=== PATIENT | female | born 1980 | race Caucasian/White ===

== ENCOUNTER → 2024-07-15 14:24 | Outpatient (RCR) | payer OTHER, SELFPAY ==
[2020-12-13 13:06] VITALS: BP 136/76; PULSE 89; RESP 18; TEMP 36.8; O2SAT 99; BMI 29.1
--- NOTE | 2020-12-13 13:36 | PM.HEMONCCN ---
Subjective - Subjective Chief complaint: Consult for anemia. Patient: new to practice Consult date: 12/13/20 Requesting Physician: Melany Bah. Primary Care Provider: ALLIE Herrera Medical Summary: DIAGNOSIS: 1. IRON DEFICIENCY ANEMIA. 2. SICKLE CELL TRAIT. HPI - Consult Narrative Reason for consult: Anemia. Narrative: Pramod arroyo is a pleasant 40 year old lady with a history of sickle cell trait. She was noted to be anemic. 07/21 CBC: WBC 6.4, HGB 8, HCT 25.6, MCV 62, PLT 328. Ferritin: 2. She has been fatigued over the past year or so. She does have a heavy period. Lately it has gotten heavier. She is passing clots. She gets it for 7 days but the 1st 3 days are the worst. Family history: Positive for sickle cell trait. 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 She has a boyfriend. She has 2 children 6 in 12-year-old. She denies smoking. She denies alcohol. Denies drugs. Review of Systems - Constitutional Reports no additional constitutional complaints, Reports lack of energy, Reports malaise, Reports weakness, Reports weight gain - Eyes Reports no additional eye complaints - ENT Reports no additional ear, nose, mouth, and throat complaints - Cardiovascular Reports no additional cardiovascular complaints - Respiratory Reports no additional respiratory complaints - Gastrointestinal Reports no additional gastrointestinal complaints - Genitourinary Reports no additional female genitourinary complaints, Reports abnormal periods, Reports heavy periods - Musculoskeletal Reports no additional musculoskeletal complaints - Integumentary/Breasts Skin/Breast: Reports no additional skin complaints - Neurologic Reports no additional neurologic complaints - Psychiatric Reports no additional psychiatric complaints - Endocrine Reports no additional endocrine complaints - Hematologic/Lymphatic Reports no additional hematologic/lymphatic complaints - Allergic/Immunologic Reports no additional allergic/immunologic complaints [facility] Medical History: Medical History (Last Updated 12/13/20 @ 07:31 by Suzi Galicia) Allergic rhinitis Hypothyroidism Iron deficiency anemia Menorrhagia with regular cycle Nephrolithiasis Sickle cell trait Functional capacity: independent ambulation Patient : No Social History: Social History (Last Updated 12/13/20 @ 13:11 by Nidhi Gongora RN) Alcohol History Details: Alcohol intake frequency: does not drink Tobacco History: Smoking Status: Never smoker Nutrition Assessment: Patient : No Smoking status: Never smoker Home Medications and Allergies Home Medications Medication Instructions Recorded Confirmed Type ferrous sulfate 1 tab PO Q OTHER DAY 12/13/20 12/13/20 History levothyroxine 1 tab PO QAM 12/13/20 12/13/20 History Allergies Allergy/AdvReac Type Severity Reaction Status Date / Time No Known Allergies Allergy Verified 12/13/20 07:33 Physical Exam Vital signs: Vital Signs Temp 98.2 F 12/13/20 13:06 Pulse 89 12/13/20 13:06 Resp 18 12/13/20 13:06 BP 136/76 12/13/20 13:06 Pulse Ox 99 12/13/20 13:06 Intake & Output 12/12/20 12/13/20 12/13/20 18:59 06:59 18:59 Other: Weight 84.5 kg Weight 84.5 kg - Constitutional Present: no acute distress - Routine HEENT Exam Head: Present: normal inspection ENT: Present: mucous membranes moist - Routine Neck Exam Present: supple - Routine Respiratory Exam Present: CTAB - Routine Cardiovascular Exam Cardiovascular: Present: RRR, S1, S2 - Routine Abdominal Exam Present: normal bowel sounds, nontender - Routine Rectal Exam Patient deferred: digital exam - Routine Extremities Exam Present: nontender - Routine Skin Exam Present: intact - Routine Neurological Exam Present: alert, oriented X3, normal speech - Detailed Neurological Exam: Coma Scale Eye Opening: Spontaneous (4) Verbal Response: Oriented (5) Motor Response: Obeys commands (6) [place] Coma Scale Total: 15 - Routine Psychiatric Exam Present: normal affect Hem/Onc Consult Result - Labs CBC & Chem 7: 12/13/20 13:39 12/13/20 13:39 Assessment and Plan (1) Anemia Status: Acute This is a pleasant 40-year-old lady with Microcytic Hypochromic Anemia. This is most likely due to underlying Iron Deficiency: She does have menorrhagia. She does have underlying sickle cell trait but that would not cause microcytosis. Differential diagnosis: 2. Hemolytic anemia. 3. Anemia of chronic disease. PLAN: I will proceed with further evaluation. Recheck her blood count today. Hemoglobin is 8.8 today. Check iron studies and ferritin. Iron profile: //. Check a hemolytic screen. Will check hemoglobin electrophoresis. She is intolerant to oral iron. Will arrange for IV iron. Will arrange for Injectafer. The dose would be 750 mg IV x2, 1 week apart. She will return in 3 months for a follow-up visit. Thank you, CC: Emely Bah.
[2020-12-13 13:53] LABS: MANUAL DIFF FLAG NO
[2020-12-13 14:00] LABS: Basophils Percent Auto 0.1 % (0-2); Eosinophils Absolute Auto 0.1 X10*3/uL (0.0-0.4); Eosinophils Percent Auto 0.8 % (0-4); Hemoglobin 8.8 g/dl (12.0-16.0); Imm Gran Abs Auto 0.01 X10*3/uL (0.00-0.03); Imm Gran Pct Auto 0.1 % (0.0-0.4); Immature Retic Fraction 26.9 % (3.0-15.9); Lymphocytes Absolute Auto 2.4 X10*3/uL (1.2-4.9); Lymphocytes Percent Auto 32.4 % (20-40); Mean Corpuscular HGB Conc 31.4 g/dl (31.0-35.0); Mean Corpuscular Hemoglobin 20.7 pg (27.0-33.0); Mean Corpuscular Volume 65.9 fL (80-98); Mean Platelet Volume 9.2 fL (9.4-12.3); Monocytes Absolute Auto 0.8 X10*3/uL (0.1-1.2); Neutrophils Absolute Auto 4.2 X10*3/uL (2.0-8.3); Neutrophils Percent Auto 56.6 % (45-73); Platelet Count 304 X10*3/uL (160-400); Red Blood Count 4.25 X10*6/uL (4.20-5.50); Red Cell Distribution Width 20.1 % (11.0-16.0); Retic HGB Equivalent 21.5 pg (30.0-35.0); Reticulocytes Absolute 0.043 X10*6/uL (0.026-0.095); White Blood Count 7.5 X10*3/uL (4.8-10.8)
[2020-12-13 14:33] LABS: Alanine Aminotransferase 17 U/L (0-31); Albumin Level 4.1 g/dL (3.5-5.0); Alkaline Phosphatase 98 U/L (39-117); Anion Gap 10 (12-20); Aspartate Amino Transferase 23 U/L (5-31); Bilirubin Total 0.9 mg/dL (0.0-1.0); Blood Urea Nitrogen 10 mg/dL (9-16); Calcium 8.7 mg/dL (8.4-10.2); Carbon Dioxide 24 mmol/L (22-29); Chloride 107 mmol/L (96-108); Creatinine Clr Calc Pharmacy 112.1; Estimated Glomerular Filt Rate > 60; Glucose Random 92 mg/dL (60-115); Iron 21 mcg/dL (30-160); Lactate Dehydrogenase 186 U/L (122-220); Percent Iron Saturation 5 % (15-50); Potassium 4.4 mmol/l (3.3-5.1); Sodium 137 mmol/L (135-145); Total Iron Binding Capacity 435 mcg/dL (228-428); Total Protein 7.3 g/dL (6.5-8.0); Unsaturated Iron Binding 414 ug/dL
[2020-12-13 14:56] LABS: Ferritin 4 ng/mL (10-250)
--- NOTE | 2020-12-13 15:30 | MHC.HEMONC ---
Pt here for Heme Consult with Dr Ward. Record reviewed. She is here for second opinion for iron def anemia and sickle cell trait. Labs drawn and to be reviewed by Dr Ward. Left message for record from at [facility].
--- NOTE | 2020-12-14 10:47 | MHC.HEMONCMA ---
Called and left a voicemail for the patient to call me back. She can either come in for 12/20/2020 at 1pm or 12/22/2020 at 10 or 12pm.
[2020-12-14 13:06] LABS: Transglutaminase IgA 1 U/mL
[2020-12-16 15:42] LABS: Hematocrit 28.6 % (35.0-45.0); Hemoglobin 8.7 g/dL (11.7-15.5); MCH 20.3 pg (27.0-33.0); MCV 66.7 fL (80.0-100.0); RBC 4.29 Million/uL (3.80-5.10); RDW 19.8 % (11.0-15.0)
--- NOTE | 2020-12-19 14:15 | MHC.HEMONCMA ---
Called and left another voicemail for patient to call me back to schedule her injectafer infusion.
--- NOTE | 2021-01-11 09:51 | MHC.HEMONCMA ---
Jerri called, patient rescheduled her iron infusion injectofer due to work issues. She rescheduled to 02/17/2021 at 8:30am. I explained to Jerri that the patient's Hemoglobin was 8.8 on 12/13/2020 at that the patient can not wait that long. Jerri states that the patient can not come in any sooner that 02/17. I will let Dr Ward know when she comes back tomorrow about this.
--- NOTE | 2021-01-12 08:40 | MHC.HEMONCMA ---
Spoke with Dr Ward, she agrees with me that 02/17/2021 is too long of a wait especially since her hemoglobin is 8.7. I called Jerri to ask her if there was any way we could accomodate the patient, like getting her in early. Piyush offered 01/19/2021 at 7:30am or maybe even a 7 if 7:30am is cutting it too close. I called and left a detailed message for her with the information above to have her please call me back so we can get her in, I would feel terrible if anything happened. I am waiting for her to call back.
== END | disposition home or self-care (01) ==
LOC: HO.ONC 12-13 12:45
PROVIDERS: PCP Physician Assistant; Referring Provider Physician Assistant; Visit Provider Internal Medicine Medical Oncology
DX: D50.9 Iron deficiency anemia, unspecified (principal); D57.3 Sickle-cell trait; Z79.899 Other long term (current) drug therapy
CPT/HCPCS: 36415; 80053; 82728; 83021; 83516; 83540; 83615; 85014; 85018; 85025; 85041; 85045; 99204